=== PATIENT | female | born 2000 | race Caucasian/White ===

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

== ENCOUNTER 2024-05-07 08:00 | Outpatient (CLI) | payer MEDICAID ==
[2024-05-07 17:50] LABS: BILIRUBIN,URINE NEGATIVE (NEGATIVE); GLUCOSE, URINE (UA) NEGATIVE (NEGATIVE); KETONES,URINE (UA) NEGATIVE (NEGATIVE); LEUKOCYTE ESTERASE, URINE NEGATIVE (NEGATIVE); NITRITE,URINE NEGATIVE (NEGATIVE); OCCULT BLOOD,URINE NEGATIVE (NEGATIVE); PH,URINE 6.5 PH (5.0-7.5); PROTEIN,URINE NEGATIVE (NEGATIVE); UROBILINOGEN,URINE 0.2 (NORMAL) E.U./dL (NORMAL)
[2024-05-07 17:52] LABS: CLARITY,URINE CLOUDY (CLEAR)
[2024-05-07 18:18] LABS: AMORPHOUS SEDIMENT,UR Marked /LPF; BACTERIA,URINE None Seen /HPF (None Seen); RBC,URINE None Seen /HPF (0-5); SQUAMOUS EPITHELIAL CELL,UR FEW Squamous (<= Few); WBC,URINE 0-3 /HPF (0-5)
[2024-05-07 20:49] LABS: BACTERIAL VAGINOSIS DNA NEGATIVE (NEGATIVE); CANDIDA GLABRATA DNA NEGATIVE (NEGATIVE); CANDIDA GROUP DNA NEGATIVE (NEGATIVE); CANDIDA KRUSEI DNA NEGATIVE (NEGATIVE); TRICHOMONAS VAGINALIS DNA NEGATIVE (NEGATIVE)
== END 2024-05-07 23:59 | disposition home or self-care (01) ==
LOC: LAB.WC 08:00
PROVIDERS: ATTEND Obstetrics & Gynecology
DX: O99.891 Other specified diseases and conditions complicating pregnancy (principal); N89.8 Other specified noninflammatory disorders of vagina
CPT/HCPCS: 81001; 81514; 87086

== ENCOUNTER 2024-05-21 08:00 | Outpatient (CLI) | payer MEDICAID ==
[2024-05-21 21:09] LABS: CHLAMYDIA TRACHOMATIS DNA NEGATIVE (NEGATIVE); NEISSERIA GONORRHOEAE DNA NEGATIVE (NEGATIVE); TRICHOMONAS VAGINALIS DNA NEGATIVE (NEGATIVE)
== END 2024-05-21 23:59 | disposition home or self-care (01) ==
LOC: LAB.WC 08:00
PROVIDERS: ATTEND Obstetrics & Gynecology
DX: N89.8 Other specified noninflammatory disorders of vagina (principal)
CPT/HCPCS: 87491; 87591; 87661

== ENCOUNTER 2024-05-21 16:59 | Outpatient (CLI) | payer MEDICAID ==
[2024-05-21 17:34] LABS: BASOPHILS # (AUTO) 0.1 10^3/uL (0.0-0.1); BASOPHILS % (AUTO) 0.5 %; EOSINOPHILS # (AUTO) 0.4 10^3/uL (0.0-0.7); HCT - HEMATOCRIT 36.6 % (37.0-47.0); HGB - HEMOGLOBIN 12.9 g/dL (12.0-16.0); LYMPHOCYTES # (AUTO) 2.1 10^3/uL (1.5-3.5); LYMPHOCYTES % (AUTO) 18.8 %; MEAN CORPUSCULAR HEMOGLOBIN 30.9 pg (27.0-31.0); MEAN CORPUSCULAR HGB CONC 35.2 g/dL (32.0-36.0); MEAN CORPUSCULAR VOLUME 87.8 fL (81.0-99.0); MEAN PLATELET VOLUME 9.5 fL (7.9-10.8); MONOCYTES # (AUTO) 0.6 10^3/uL (0.0-1.0); MONOCYTES % (AUTO) 5.3 %; NEUTROPHILS # (AUTO) 7.7 10^3/uL (1.5-6.6); NEUTROPHILS % (AUTO) 70.9 %; PLT - PLATELET COUNT 237 10^3/uL (130-450); RED BLOOD COUNT 4.17 10^6/uL (4.20-5.40); RED CELL DISTRIBUTION WIDTH 12.8 % (12.0-15.0); WHITE BLOOD COUNT 10.9 x10^3/uL (4.8-10.8)
[2024-05-23 03:11] LABS: HBsAG SCREEN Negative (Negative)
[2024-05-23 06:11] LABS: HIV SCREEN 4TH GENERATION Non Reactive (Non Reactive); RPR Non Reactive (Non Reactive)
[2024-05-23 08:11] LABS: VARICELLA-ZOSTER AB IGG 1162 index (Immune >165)
[2024-05-24 03:38] LABS: HCV AB Non Reactive (Non Reactive)
== END 2024-05-21 17:00 | disposition home or self-care (01) ==
LOC: LAB 16:59
PROVIDERS: ATTEND Obstetrics & Gynecology
DX: O99.891 Other specified diseases and conditions complicating pregnancy (principal); N89.8 Other specified noninflammatory disorders of vagina; Z36.89 Encounter for other specified antenatal screening
CPT/HCPCS: 36415; 81001; 85025; 86592; 86762; 86787; 86803; 86850; 86900; 86901; 87086; 87340; 87389; 87491; 87522; 87591; 87661

== ENCOUNTER 2024-11-18 10:43 | Inpatient (IN) ==
[2024-11-18 11:47] LABS: RUPTURE OF MEMBRANES PLUS POSITIVE (NEGATIVE)
[2024-11-18] MEDS ORDERED: SODIUM CHLORIDE FLUSH 0.9% 10 ML SYRINGE IVP PRN ×2 (11:59→12:38)
[2024-11-18] MEDS: ACETAMINOPHEN 325 MG TABLET PO PRN (12:34)
[2024-11-18] MEDS ORDERED: LABETALOL 20 MG/4 ML SYRINGE IVP PRN ×3 (12:38)
[2024-11-18] MEDS ORDERED: NIFEdipine 10 MG CAPSULE PO PRN (12:38)
[2024-11-18] MEDS ORDERED: TRANEXAMIC ACID IN NACL 1,000 MG/100 ML BAG IV PRN (12:38)
[2024-11-18] MEDS ORDERED: METHYLERGONOVINE 0.2 MG/ML VIAL IM PRN (12:38)
[2024-11-18] MEDS ORDERED: OXYTOCIN/SODIUM CHLORIDE 500 ML IV PRN ×2 (12:38→23:15)
[2024-11-18] MEDS ORDERED: TERBUTALINE 1 MG/ML VIAL SUBQ PRN (12:38)
[2024-11-18] MEDS ORDERED: miSOPROStoL 200 MCG TABLET BC PRN (12:38)
[2024-11-18] MEDS ORDERED: lidocaine 1% 20 ML MDV ID PRN (12:38)
[2024-11-18] MEDS ORDERED: fentaNYL 100 MCG/2 ML VIAL IVP PRN ×2 (12:38→22:40)
[2024-11-18] MEDS ORDERED: miSOPROStoL 200 MCG TABLET PR PRN (12:38)
[2024-11-18] MEDS ORDERED: hydrALAZINE INJ 20 MG/ML VIAL IVP PRN (12:38)
[2024-11-18] MEDS ORDERED: OXYTOCIN 10 UNIT/ML VIAL IM PRN (12:38)
[2024-11-18 13:15] LABS: BASOPHILS % (AUTO) 0.3 %; EOSINOPHILS # (AUTO) 0.3 10^3/uL (0.0-0.7); EOSINOPHILS % (AUTO) 1.9 %; HCT - HEMATOCRIT 37.1 % (37.0-47.0); HGB - HEMOGLOBIN 12.3 g/dL (12.0-16.0); LYMPHOCYTES # (AUTO) 1.9 10^3/uL (1.5-3.5); MEAN CORPUSCULAR HEMOGLOBIN 29.7 pg (27.0-31.0); MEAN CORPUSCULAR HGB CONC 33.2 g/dL (32.0-36.0); MEAN CORPUSCULAR VOLUME 89.6 fL (81.0-99.0); MEAN PLATELET VOLUME 10.1 fL (7.9-10.8); MONOCYTES % (AUTO) 6.7 %; NEUTROPHILS # (AUTO) 11.1 10^3/uL (1.5-6.6); PLT - PLATELET COUNT 282 10^3/uL (130-450); RED BLOOD COUNT 4.14 10^6/uL (4.20-5.40); WHITE BLOOD COUNT 14.4 x10^3/uL (4.8-10.8)
--- NOTE | 2024-11-18 13:25 | HISTORY & PHYSICAL EXAMINATION ---
Admit History Smoking Status: Never smoker Other Maternal History Other Maternal History: HPI: Patient is a 24-year-old at 37 weeks 4 days gestation who presents today for leaking fluid. She had a gush of fluid around 0300. Contractions were every 5 minutes, but have spaced out.. She has good movement. No MCGRATH/BV or RUQP. No vaginal bleeding. Denies nausea and vomiting. Denies urinary urgency or dysuria. All other symptoms reviewed and were negative except per HPI. Course 23 yo G1 LMP: 02/29/2024 YU by LMP: 12/05/2024 US: Final YU: FOB Maureen. first for both. unplanned but welcome. 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 BMI 40 at first visit. LD-ASA Marginal cord insertion Pre- Weight: 227 lb BMI: 40.53 Blood type:O+ Antibody: Neg CBC:H/H 12.9/36.6 237 RUB:Immune VZV:Immune HBsAg: Neg HepC: NR RPR/AB-EIA: NR HIV: NR PAP:05/21 NILM GC/CT: Neg HSV: denies Genetic testing:NIPT ordered, does not appear to have been done. Covid: vaccine x1, inf 10/07, declines vac. Flu: 06/18 FAS:ordered 07/15 Placenta: Anterior Cord: 3VC EFW: 550..g 50gm OGCT: 139 3HR GTT: TDAP: 09/10/2024 Breast Pump: 09/10/2024 Antibody screen: 3rd trimester PLT 246 HCT 34.2 HGB 11.4 3rd trimester RPR NR GBS: Delivery plan: Contraception: Mirena HPI Current : Vital Signs Temperature 37.0 C 11/18/24 10:50 Pulse Rate 117 H 11/18/24 10:50 Respiratory Rate 17 11/18/24 10:50 Blood Pressure 138/63 H 11/18/24 11:48 Meds/Allgy Allergies Allergies Allergy/AdvReac Type Severity Reaction Status Date / Time amoxicillin Allergy Hives Verified 11/18/24 10:55 Penicillins Allergy Hives Verified 11/18/24 10:55 PFSH Active Problems All Active Problems (Updated 11/18/24 @ 15:16 by Alonzo Forde MD) Positive GBS test (Acute) Rupture of membranes with clear amniotic fluid (Acute) 37 weeks gestation of (Acute) Marginal insertion of umbilical cord affecting management of mother (Acute) Obesity affecting (Acute) Frequent headaches (Acute) Severe obesity (BMI >= 40) (Acute) Supervision of normal first (Acute) Medical History Medical History (Updated 11/18/24 @ 15:16 by Alonzo Forde MD) History of hypertension was on metoprolol when she conceived. says her bps were quite high before that. took irregularly in early and so stopped. History of depression Anxiety Family History Family History (Updated 07/16/24 @ 08:14 by Arcelia Choi LPN) Mother Cancer High blood pressure Father CAD (coronary artery disease) Social History Social History (Updated 07/17/24 @ 14:00 by Steff Malcolm MD) Smoking Status: Never smoker If you are a former smoker, when did you quit? (Date/Year): former vape Second hand tobacco smoke exposure: No Do you dip or chew tobacco?: No Do you vape?: No Living arrangement: At home Living Condition: With family Living Situation Details: FOB is Maureen. he is a shingles roofer Do you feel safe in your home environment?: Yes Suffered physical, verbal, emotional, or financial abuse?: No ETOH Use: None Substance Use: denies use Are you sexually active?: Yes Control Method: control pill Sexual Practice Notes: was taking ocps when she conceived. 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 Review of Systems Status of ROS: 10 or more systems reviewed and unremarkable except as noted in history and below Physical Abdominal Exam Vital Signs: Temp Pulse Resp BP 37.0 C 117 H 17 138/63 H 11/18/24 10:50 11/18/24 10:50 11/18/24 10:50 11/18/24 11:48 Other Notes Labor Progress Note/Additional Text: General: Alert, oriented, no acute distress Head: Normal cephalic atraumatic Eyes: PERRLA, extraocular motions intact. Respiratory: Normal rate of respiration. No accessory muscle use, normal respiratory effort. Cardiovascular: Regular rate and rhythm Abdomen: Gravid, nontender, nondistended Extremities: Normal range of motion Neuro: Oriented x3. Normal movements Psych: Appropriate mood and affect. Normal judgment and insight SVE: 1/20/-3 FHT: [ ] [place]: [ ] Labs: Positive ROM plus. Plan for Labor Plan For Labor I expect patient to be DC'd or transferred within 96 hours.: Yes Conclusion/Plan Problem List (1) Rupture of membranes with clear amniotic fluid: Plan: -ROM plus positive. Leaking fluid. Had contractions earlier, but have since subsided. -Admit to L&D, admit labs, epidural at patient's request -Oxytocin for augmentation. (2) 37 weeks gestation of : (3) Marginal insertion of umbilical cord affecting management of mother: Plan: Care during labor. Unlikely to affect management. (4) Obesity affecting : Qualifiers: Trimester: third trimester Obesity type affecting : severe obesity due to excess calories Qualified Code(s): O99.213 - Obesity complicating , third trimester; E66.01 - Morbid (severe) obesity due to excess calories (5) Positive GBS test: Plan: -Allergic to penicillin. Resistant to clindamycin. Will start vancomycin. Lab Results 11/18/24 13:00 11/18/24 13:00
[2024-11-18 13:31] LABS: CREATININE,URINE 119.4 mg/dL; PROTEIN/CREATININE RATIO,URINE 0.4 (<=0.2)
[2024-11-18 13:35] LABS: ALBUMIN 3.4 g/dL (3.2-5.5); ALBUMIN/GLOBULIN RATIO 1.1 (1.0-2.2); BILIRUBIN,TOTAL 0.2 mg/dL (0.2-1.0); CALCIUM 8.4 mg/dL (8.5-10.3); CREATININE 0.4 mg/dL (0.6-1.3); POTASSIUM 3.8 mmol/L (3.5-4.5); TOTAL PROTEIN 6.4 g/dL (6.4-8.9)
[2024-11-18] MEDS: LACTATED RINGERS 1,000 ML IV PRN (13:35)
[2024-11-18] MEDS: OXYTOCIN/SODIUM CHLORIDE 500 ML IV SCH (13:35)
--- NOTE | 2024-11-18 14:36 | PHARMACY PROGRESS NOTE ---
Best Possible Medication History Admit Date and Time: 11/18/24 6999 Processed by: Nursing ([employer] Tender, Les spoke with nursing staff) Medications reviewed in ED?: No Medication History completed: Yes Patient Interview: Pt unable to participate Secondary Source(s): Insurance records [facility] Statement: As the person ultimately responsible for medication therapy, providers are able to order a medication from an existing home medication list in [facility] via the "Reconcile Routine" prior to Confirmation of that medication by application support manager. Such practice is discouraged except when the physician, in their clinical judgment, deems that a medical need exists for a medication without regard to previous use.
[2024-11-18] MEDS: VANCOMYCIN INJ 2 GM in SODIUM CHLORIDE 0.9% 500 ML IV SCH (14:45)
[2024-11-18] MEDS: SODIUM CHLORIDE FLUSH 0.9% 10 ML SYRINGE IVP SCH (14:47)
[2024-11-18] MEDS: CALCIUM CARBONATE CHEW 500 MG TABLET PO SCH (16:00)
[2024-11-18] MEDS ORDERED: LIDOCAINE 2%-EPI 1:100000 20 ML MDV ONE (17:15)
[2024-11-18] MEDS ORDERED: ROPIVACAINE 0.2% 200 MG/100 ML BAG EP ONE (17:15)
[2024-11-18] MEDS: ONDANSETRON 4 MG/2 ML VIAL IVP PRN (17:31)
--- NOTE | 2024-11-18 17:46 | ANESTHESIA PROCEDURE NOTE ---
Pre-Anesthesia VS, & Labs Diagnosis Surgical Diagnosis:: labor pain Procedure Procedure: epidural for Vitals Vital Signs: Temp Pulse Resp BP 37.0 C 117 H 17 138/63 H 11/18/24 10:50 11/18/24 10:50 11/18/24 10:50 11/18/24 11:48 NPO Last Fluid Intake: <1hr Last Food Intake: lunch Is Patient ?: Yes Lab Results Current Lab Results: Laboratory Tests 11/18/24 13:00: WBC 14.4 H, RBC 4.14 L, Hgb 12.3, Hct 37.1, MCV 89.6, MCH 29.7, MCHC 33.2, RDW 13.0, Plt Count 282, MPV 10.1, Neut # (Auto) 11.1 H, Lymph # (Auto) 1.9, [place] # (Auto) 1.0, Eos # (Auto) 0.3, Baso # (Auto) 0.0, Absolute Nucleated RBC 0.00, Nucleated RBC % 0.0, Sodium 135, Potassium 3.8, Chloride 105, Carbon Dioxide 22, Anion Gap 8.0, BUN 7, Creatinine 0.4 L, Estimated GFR (MDRD) 200, Glucose 76, Calcium 8.4 L, Total Bilirubin 0.2, AST 13, ALT 11, A lkaline Phosphatase 126 H, Total Protein 6.4, Albumin 3.4, Globulin 3.0, Albumin/Globulin Ratio 1.1, Blood Type O POSITIVE, Antibody Screen NEGATIVE Lab results reviewed: Yes 11/18/24 13:00 11/18/24 13:00 Meds/Allgy Allergies Allergies Allergy/AdvReac Type Severity Reaction Status Date / Time amoxicillin Allergy Hives Verified 11/18/24 10:55 Penicillins Allergy Hives Verified 11/18/24 10:55 PFSH Active Problems All Active Problems (Updated 11/18/24 @ 15:16 by Alonzo Forde MD) Positive GBS test (Acute) Rupture of membranes with clear amniotic fluid (Acute) 37 weeks gestation of (Acute) Marginal insertion of umbilical cord affecting management of mother (Acute) Obesity affecting (Acute) Supervision of normal first (Acute) Frequent headaches (Acute) Severe obesity (BMI >= 40) (Acute) Medical History Medical History (Updated 11/18/24 @ 15:16 by Alonzo Forde MD) History of hypertension was on metoprolol when she conceived. says her bps were quite high before that. took irregularly in early and so stopped. History of depression Anxiety Family History Family History (Updated 07/16/24 @ 08:14 by Arcelia Choi LPN) Mother Cancer High blood pressure Father CAD (coronary artery disease) Social History Social History (Updated 07/17/24 @ 14:00 by Steff Malcolm MD) Smoking Status: Never smoker If you are a former smoker, when did you quit? (Date/Year): former vape Second hand tobacco smoke exposure: No Do you dip or chew tobacco?: No Do you vape?: No Living arrangement: At home Living Condition: With family Living Situation Details: MICHAEL is Maureen. 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 Anesthesia Exam (Expanded) Exam General: Alert, Oriented x3, Cooperative and Mild distress Dental: WNL Mouth Openin Fingerbreadth Neck Mobility: Normal Mallampati classification: III Respiratory: No respiratory distress Cardiovascular: Regular rate (tachy at 110) Neurological: Normal speech Mental/Cognitive Status: Alert/Oriented X3 and Normal for patient Cognitive Status: Within normal limits Plan Problem List (1) Rupture of membranes with clear amniotic fluid: Plan: -ROM plus positive. Leaking fluid. Had contractions earlier, but have since subsided. -Admit to L&D, admit labs, epidural at patient's request -Oxytocin for augmentation. (2) 37 weeks gestation of : (3) Marginal insertion of umbilical cord affecting management of mother: Plan: Care during labor. Unlikely to affect management. (4) Obesity affecting : Qualifiers: Trimester: third trimester Obesity type affecting : severe obesity due to excess calories Qualified Code(s): O99.213 - Obesity complicating , third trimester; E66.01 - Morbid (severe) obesity due to excess calories (5) Positive GBS test: Plan: -Allergic to penicillin. Resistant to clindamycin. Will start vancomycin. Plan Anesthesia Type: Epidural Consent for Procedure(s) Verified and Reviewed: Yes Code Status: Attempt Resuscitation ASA Classification ASA classification: 2-Mild systemic disease Is this case an emergency?: No
[2024-11-18] MEDS ORDERED: NALOXONE 0.4 MG/ML VIAL IVP PRN ×2 (17:47→22:40)
[2024-11-18] MEDS ORDERED: NALBUPHINE 10 MG/ML AMP IVP PRN (17:47)
[2024-11-18] MEDS ORDERED: diphenhydrAMINE INJ 50 MG/ML VIAL IVP PRN (17:47)
[2024-11-18] MEDS ORDERED: METOCLOPRAMIDE 10 MG/2 ML VIAL IVP PRN ×2 (17:47→22:40)
[2024-11-18] MEDS ORDERED: LACTATED RINGERS 500 ML IV ONE (17:47)
[2024-11-18] MEDS ORDERED: ePHEDrine 50 MG/ML VIAL IVP PRN ×2 (17:47→22:40)
[2024-11-18] MEDS ORDERED: ROPIVACAINE 0.2% 200 MG/100 ML BAG EP PRN (17:47)
[2024-11-18] MEDS ORDERED: ONDANSETRON 4 MG/2 ML VIAL IVP PRN ×2 (17:47→22:40)
--- NOTE | 2024-11-18 20:05 | PROVIDER PROGRESS NOTE ---
Labor Progress Note Uterine Monitoring Uterine Monitoring Mode: positive External toco Contraction Frequency (min/apart): Irregular 1-7 minutes Monitoring Monitor Mode: positive External ultrasound Heart Rate Baseline: 150 Heart Rate Variability: positive Moderate (6-25 bmp) Accelerations: positive Present, 15x15 Decelerations: positive Late, Variable and Intermittent (<50% x20 min) Strip Review: positive Category II Vaginal Exam Dilation (in cm): 5 Effacement (%): 100 Station: 0 Labor Progress Note Labor Progress Note/Additional Text: Intemittent late/variable decelerations. More common now with epidural. Will continue to reposition. Oxytocin decreased. Will consider internal monitors if FHT becomes difficult to trace again.
--- NOTE | 2024-11-18 20:56 | MISCELLANEOUS PROVIDER NOTE ---
Miscellaneous Provider Note - Note: Patient with complaints of feeling too numb, legs in particular. Pt lying on L side. Sensory level assessed at T8, able to move B LE. Explained that contractions may become more uncomfortable with changes to dosing. 10cc [id number] reduced to 7cc [id number].
--- NOTE | 2024-11-18 21:00 | PROVIDER PROGRESS NOTE ---
Labor Progress Note Labor Progress Note Labor Progress Note/Additional Text: Continue difficulties tracing fetus and contractions, so FSE and IUPC placed after discussion with patient, support person. Place without difficulty. 6/100/0. Oxytocin at 5 milliunits/min. heart rate tracing 150 bpm baseline, variable decelerations, difficult to trace contractions prior to placement. Now significant variable decelerations noted. Will start amnioinfusion. Increased risk of section.
[2024-11-18] MEDS: LACTATED RINGERS 1,000 ML IY ONE (21:30)
[2024-11-18] MEDS ORDERED: AZITHROMYCIN INJ 500 MG in SODIUM CHLORIDE 0.9% 250 ML IV STA (21:42)
[2024-11-18] MEDS ORDERED: CITRIC ACID/SODIUM CITRATE 15 ML UDC PO ONE (21:43)
[2024-11-18] MEDS ORDERED: SODIUM CHLORIDE 0.9% IV ONE (21:43)
[2024-11-18] MEDS ORDERED: GENTAMICIN IV ONE (21:43)
[2024-11-18] MEDS ORDERED: CLINDAMYCIN 900 MG/50 ML 50 ML IV ONE (21:43)
--- NOTE | 2024-11-18 21:46 | PROVIDER PROGRESS NOTE ---
Labor Progress Note Labor Progress Note Labor Progress Note/Additional Text: Patient with persistent deep variable decelerations that initially improved with amnioinfusion, but subsequently returned. Discussed being remote from delivery with persistent category 2 tracing recommendation to proceed with section. section was recommended. Risks, benefits and alternatives were discussed including but not limited to infection, bleeding that may require blood products or hysterectomy for life saving measures, injury to surrounding organs including but not limited to bowel, bladder, ureters, tubes and ovaries and/or the baby. Should injury occur it could require longer/additional surgery to repair. The patient stated understanding and desired to proceed. All questions were answered posed by patient. Team was called and and will prepare for
[2024-11-18] MEDS ORDERED: OXYTOCIN 10 UNIT/ML VIAL ONE (21:55)
[2024-11-18] MEDS ORDERED: KETOROLAC 30 MG/ML VIAL ONE (22:31)
[2024-11-18] MEDS ORDERED: MORPHINE 2 MG/ML CARPUJECT IVP PRN (22:40)
[2024-11-18] MEDS ORDERED: HYDROmorphone 0.5 MG/0.5 ML SYRINGE IVP PRN (22:40)
[2024-11-18] MEDS ORDERED: ATROPINE ABBOJECT 1 MG/10 ML SYRINGE IVP PRN (22:40)
[2024-11-18] MEDS ORDERED: ACETAMINOPHEN 1,000 MG/100 ML 1,000 MG/100 ML BAG IV ONE (22:43)
[2024-11-18] MEDS ORDERED: LACTATED RINGERS 1,000 ML IV SCH (23:00)
--- NOTE | 2024-11-18 23:14 | OPERATIVE REPORT ---
Operative Report General Admit Date: 11/18/24 Procedure Data: Operation Date: 11/18/24 21:00 Proposed Procedures p Section(Not Applicable) - Alonzo Forde MD Anesthesia Type Epidural Case Staff Anesthesia Provider: Cahn Gan Assisting Provider: Florinda Singh Case Times Procedure Start: 11/18/24 22:23 Time out: 11/18/24 22:22 Pre-op diagnosis: Category 2 tracing remote from delivery Repetitive variable decelerations Spontaneous rupture of membranes 37 weeks gestation Postop diagnosis: Same Status post primary low-transverse section Delivery of live bronson Procedure Note Estimated Blood Loss (ml): 600 Pathology: None Findings: Normal-appearing uterus, tubes, ovaries. Liveborn with Apgars of 8/9. Cord wrapped around head Complications: None Other Other Information/Narrative: section was recommended. Risks, benefits and alternatives were discussed including but not limited to infection, bleeding that may require blood products or hysterectomy for life saving measures, injury to surrounding organs including but not limited to bowel, bladder, ureters, tubes and ovaries and/or the baby. Should injury occur it could require longer/additional surgery to repair. The patient stated understanding and desired to proceed. All questions were answered posed by patient. Verbal consent was obtained. Prior to being taken to the OR, antibiotics were ordered and prior to surgery gentamicin and azithromycin were given, however due to the multiple medications, clindamycin was not given prior to surgery starting. The patient was taken to the operating room where regional anesthesia was found to be adequate. She was then prepared and draped in the usual sterile fashion in the dorsal supine position with a leftward tilt displacing the uterus. Newell was draining to gr avity. SCDs were on bilateral lower extremities. Time out was taken. A pfannenstiel skin incision was then made with the scalpel and carried through to the underlying layer of fascia. The fascia was incised in the midline and the incision extended laterally with the Forrest scissors. The superior aspect of the facial incision was then grasped with the Doron clamps, elevated and the underlying rectus muscles dissected off sharply. Attention was then turned to the inferior aspect of this incision which in a similar fashion was grasped, elevated with the Doron clamps and the rectus muscle dissected off sharply. The rectus muscles were in the midline. The peritoneum identified, grasped with the pick-ups and entered sharply with the Metzenbaum scissors. The peritoneal incision was then extended superiorly and inferiorly with good visualization of the bladder. The bladder blade was inserted. The vesicouterine peritoneum was identified, grasped with the pick-ups, and entered sharply with Metzenbaum scissors. This incision was then extended laterally and the bladder flap created digitally. The bladder blade was reinserted. The lower uterine segment was identified and incised in a transverse fashion with the scalpel. The uterine incision was then extended bluntly laterally. The bladder blade was removed. The fetus was in a cephalic presentation. The infants head delivered atraumatically. The anterior shoulders were delivered followed by the posterior shoulders then the remainder of the body. The infants mouth and nose were bulb suctioned. The umbilical cord was clamped times two and cut. The infant was handed to the pediatric team. The placenta was removed with gentle traction. Oxytocin was added to the IV fluid and was allowed to run freely. The uterus was exteriorized and cleared of all clots and debris. The uterine incision was inspected and found to be without any extensions and was repaired with 0 Vicryl in a running, locked fashion. A second imbricating layer was performed. Upon inspection, the repaired hysterotomy was found to be hemostatic. The uterus was firm and returned to the abdomen. The gutters were cleared of all clots and debris. The muscle layer was examined and found to be hemostatic. The fascia was reapproximated with 0 Vicryl in a running fashion. The subcutaneous tissue was closed with 2-0 Vicryl in 2 layers. The skin was closed in a subcuticular fashion with 4-0 Monocryl. The patient tolerated the procedure well. As no preoperative count was performed, an x-ray was performed at the end of surgery showing no retained objects. The patient was taken to the recovery room in stable condition. I appreciate the assistance of ASH Figueroa during this procedure, and the assistance in retraction, visualization, dissection, and overall assistance during the case were instrumental to the patient's wellbeing. APGARs: 8/9 weight: Pending
[2024-11-18] MEDS ORDERED: ONDANSETRON ODT 4 MG TABLET TL PRN (23:15)
--- NOTE | 2024-11-18 23:38 | XRAY Report ---
PROCEDURE: XR Pelvis 1-2V INDICATIONS: emergent TECHNIQUE: 1 view(s) of the pelvis acquired. COMPARISON: None. FINDINGS: Bones: No fractures or dislocations. No suspicious bony lesions. Soft tissues: Visualized bowel gas pattern is normal. No suspicious soft tissue calcifications. IMPRESSION: No acute pelvic fracture or dislocation. No radiopaque foreign bodies. Reviewed by: Duncan Woo MD on 11/18/2024 11:36 PM PST Approved by: Duncan Woo MD on 11/18/2024 11:36 PM PST Station ID: [id number]
--- NOTE | 2024-11-18 23:42 | ANESTHESIA POST OP EVALUATION ---
Anesthesia Post Eval Post Anesthesia Eval Vitals: Last Vital Signs Temp 38.0 C H 11/18/24 23:25 Pulse 93 11/18/24 23:25 Resp 24 11/18/24 23:25 BP 114/61 11/18/24 23:25 Pulse Ox 96 11/18/24 23:25 CV Function Including HR & BP: Stable Pain Control: Satisfactory Nausea & Vomiting: Negative Mental Status: Baseline Respiratory Status: Airway Patent Hydration Status: Satisfactory Anesthesia Complications: None
[2024-11-19] MEDS ORDERED: CLINDAMYCIN 900 MG/50 ML 900 MG/50 ML BAG IV ONE (00:21)
[2024-11-19] MEDS: CLINDAMYCIN 900 MG/50 ML 900 MG/50 ML BAG IV SCH (00:29)
[2024-11-19 05:47] LABS: BASOPHILS % (AUTO) 0.3 %; EOSINOPHILS # (AUTO) 0.1 10^3/uL (0.0-0.7); EOSINOPHILS % (AUTO) 0.7 %; HCT - HEMATOCRIT 32.2 % (37.0-47.0); HGB - HEMOGLOBIN 10.6 g/dL (12.0-16.0); LYMPHOCYTES # (AUTO) 1.6 10^3/uL (1.5-3.5); LYMPHOCYTES % (AUTO) 11.5 %; MEAN CORPUSCULAR HEMOGLOBIN 29.7 pg (27.0-31.0); MEAN CORPUSCULAR HGB CONC 32.9 g/dL (32.0-36.0); MEAN CORPUSCULAR VOLUME 90.2 fL (81.0-99.0); MEAN PLATELET VOLUME 9.9 fL (7.9-10.8); MONOCYTES # (AUTO) 0.9 10^3/uL (0.0-1.0); MONOCYTES % (AUTO) 6.2 %; NEUTROPHILS # (AUTO) 11.1 10^3/uL (1.5-6.6); NEUTROPHILS % (AUTO) 80.7 %; PLT - PLATELET COUNT 228 10^3/uL (130-450); RED BLOOD COUNT 3.57 10^6/uL (4.20-5.40); RED CELL DISTRIBUTION WIDTH 13.1 % (12.0-15.0); WHITE BLOOD COUNT 13.8 x10^3/uL (4.8-10.8)
[2024-11-19] MEDS: KETOROLAC 30 MG/ML VIAL IVP SCH ×2 (06:12→19:13)
[2024-11-19] MEDS: ACETAMINOPHEN 500 MG TABLET PO SCH (08:11)
[2024-11-19] MEDS: oxyCODONE 5 MG TABLET PO PRN (08:12)
[2024-11-19] MEDS: LACTATED RINGERS 1,000 ML IV SCH (08:12)
[2024-11-19] MEDS: SODIUM CHLORIDE FLUSH 0.9% 10 ML SYRINGE IVP SCH (08:13)
--- NOTE | 2024-11-19 08:45 | PROVIDER PROGRESS NOTE ---
Subjective Subjective Subjective: Subjective Patient reports she is doing well. Lochia appropriate. Denies heavy bleeding. Ambulating. Pelvic and abdominal pain well-controlled. Tolerating oral intake. Diet: Regular. Voiding without difficulty. Passing flatus. Denies BM. Patient is bonding with baby in room Breast feeding going well. Denies feeling lightheaded, dizzy or excessively fatigued. Objective General: Alert, oriented, no apparent distress. Cardiovascular: Regular rate. Regular rhythm. Lungs: No increased work of breathing. Abdomen: Uterus firm. Below umbilicus. No guarding or rebound. Extremities: No pain on palpation. No cords palpated. Distal pulses intact. Incision: Bandage in place. Current Medications Current Medications Current Medications: Current Medications Generic Name Dose Route Start Last Admin Trade Name Freq PRN Reason Stop Dose Admin Acetaminophen 650 mg 11/18/24 11:59 11/18/24 12:34 Acetaminophen 325 Mg Tablet PO 650 mg Q4HR PRN Administration Pain 1 to 4, or Fever Acetaminophen 1,000 mg 11/19/24 00:00 11/19/24 08:11 Acetaminophen 500 Mg Tablet PO 1,000 mg Q6HR RAJ Administration Calcium Carbonate/Glycine 500 mg 11/18/24 15:55 11/18/24 16:00 Calcium Carbonate Chew 500 Mg Tablet PO 500 mg BID RAJ Administration Diphenhydramine HCl 12.5 - 25 mg 11/18/24 17:47 Diphenhydramine Inj 50 Mg/Ml Vial IVP Q6HR PRN ITCHING Docusate Sodium 100 mg 11/19/24 09:00 Docusate Sodium 100 Mg Capsule PO DAILY RAJ Ephedrine Sulfate 5 mg 11/18/24 17:47 Ephedrine 50 Mg/Ml Vial IVP Q5M PRN For SBP<100;give until SBP>100 Fentanyl 50 mcg 11/18/24 12:38 Fentanyl 100 Mcg/2 Ml Vial IVP Q1H PRN Severe Pain (score 7-10) Hydralazine HCl 5 - 10 mg 11/18/24 12:38 Hydralazine Inj 20 Mg/Ml Vial IVP Q20M PRN SBP> or= 160 OR DBP> or= 110 Protocol Lactated Ringer's 500 mls @ 999 mls/hr 11/18/24 12:38 11/18/24 13:35 Lr IV 125 mls/hr PRN PRN Administration PER PHYSICIAN ORDER Oxytocin/Sodium Chloride 500 mls @ 999 mls/hr 11/18/24 12:38 Pitocin/Sodium Chloride IV PRN PRN POST- HEMORR PREVENTION Protocol 999 MILLIUNIT/MIN Tranexamic Acid 1,000 mg in 100 mls @ 600 mls/hr 11/18/24 12:38 Tranexamic 1,000 Mg/100ml-Nacl IV Q30M PRN EBL >1200mL and within 3hr Vancomycin HCl 2 gm/ Sodium 500 mls @ 250 mls/hr 11/18/24 14:30 11/18/24 14:45 Chloride IV 250 mls/hr Q8H RAJ Administration Oxytocin/Sodium Chloride 500 mls @ 2 mls/hr 11/18/24 13:00 11/18/24 21:01 Pitocin/Sodium Chloride IV 0 milliunit/min TITR RAJ 0 mls/hr Titration Protocol 2 MILLIUNIT/MIN Ropivacaine 200 mg in 100 mls @ 0 mls/hr 11/18/24 17:47 Naropin 0.2% EP PRN PRN PAIN Protocol Per Protocol Oxytocin/Sodium Chloride 500 mls @ 999 mls/hr 11/18/24 23:15 Pitocin/Sodium Chloride IV PRN PRN POST- HEMORR PREVENTION Protocol 999 MILLIUNIT/MIN Lactated Ringer's 1,000 mls @ 100 mls/hr 11/18/24 23:45 11/19/24 08:12 Lr IV 100 mls/hr .Q10H RAJ Administration Clindamycin/Sodium Chloride 900 mg in 50 mls @ 100 mls/hr 11/19/24 23:45 11/19/24 01:29 Cleocin 900 Mg/50 Ml IV Infused Q6H RAJ Infusion Ibuprofen 600 mg 11/20/24 00:00 Ibuprofen 600 Mg Tablet PO Q6HR RAJ Ketorolac Tromethamine 30 mg 11/19/24 00:00 11/19/24 06:12 Ketorolac 30 Mg/Ml Vial IVP 11/19/24 12:01 30 mg Q6HR RAJ Administration Labetalol HCl 20 - 80 mg 11/18/24 12:38 Labetalol 20 Mg/4 Ml Syringe IVP Q10M PRN SBP> or= 160 OR DBP> or= 110 Protocol Labetalol HCl 20 mg 11/18/24 12:38 Labetalol 20 Mg/4 Ml Syringe IVP .ONCE PRN SBP> or= 160 OR DBP> or= 110 Protocol Labetalol HCl 20 - 40 mg 11/18/24 12:38 Labetalol 20 Mg/4 Ml Syringe IVP Q10M PRN SBP> or= 160 OR DBP> or= 110 Protocol Lidocaine HCl 20 ml 11/18/24 12:38 Lidocaine 1% 20 Ml Mdv ID 11/21/24 12:38 .ONCE PRN PERINEAL REPAIR Methylergonovine Maleate 0.2 mg 11/18/24 12:38 Methylergonovine 0.2 Mg/Ml Vial IM .ONCE PRN Hemorrhage Metoclopramide HCl 10 mg 11/18/24 17:47 Metoclopramide 10 Mg/2 Ml Vial IVP Q6HR PRN Nausea / Vomiting Misoprostol 600 mcg 11/18/24 12:38 Misoprostol 200 Mcg Tablet BC .ONCE PRN Hemorrhage Misoprostol 800 mcg 11/18/24 12:38 Misoprostol 200 Mcg Tablet CO .ONCE PRN Hemorrhage Nalbuphine HCl 2.5 - 5 mg 11/18/24 17:47 Nalbuphine 10 Mg/Ml Amp IVP Q4H PRN ITCHING Naloxone HCl 0.1 mg 11/18/24 17:47 Naloxone 0.4 Mg/Ml Vial IVP Q2M PRN RR<8 Nifedipine 10 - 20 mg 11/18/24 12:38 Nifedipine 10 Mg Capsule PO Q20M PRN SBP> or= 160 OR DBP> or= 110 Protocol Ondansetron HCl 4 mg 11/18/24 17:19 11/18/24 17:31 Ondansetron 4 Mg/2 Ml Vial IVP 4 mg Q6HR PRN Administration Nausea / Vomiting Ondansetron HCl 4 mg 11/18/24 17:47 Ondansetron 4 Mg/2 Ml Vial IVP Q6HR PRN Nausea / Vomiting Ondansetron HCl 4 mg 11/18/24 23:15 Ondansetron Odt 4 Mg Tablet TL Q4HR PRN Nausea / Vomiting Oxycodone HCl 5 mg 11/18/24 23:15 11/19/24 08:12 Oxycodone 5 Mg Tablet PO 5 mg Q4HR PRN Administration Moderate Pain (Level 4-6) Oxytocin 10 unit 11/18/24 12:38 Oxytocin 10 Unit/Ml Vial IM .ONCE PRN Step One if no IV access. Simethicone 80 mg 11/18/24 23:15 Simethicone Chew 80 Mg Tablet PO TID PRN Gas Sodium Chloride 10 ml 11/18/24 11:59 Sodium Chloride Flush 0.9% 10 Ml Syringe IVP PRN PRN NEEDED PER PROVIDER ORDERS Sodium Chloride 10 ml 11/18/24 17:00 11/19/24 08:13 Sodium Chloride Flush 0.9% 10 Ml Syringe IVP 10 ml 0100,0900,1700 RAJ Administration Sodium Chloride 10 ml 11/18/24 12:38 Sodium Chloride Flush 0.9% 10 Ml Syringe IVP PRN PRN NEEDED PER PROVIDER ORDERS Sodium Chloride 10 ml 11/18/24 13:00 11/18/24 14:47 Sodium Chloride Flush 0.9% 10 Ml Syringe IVP 10 ml Q8H RAJ Administration Terbutaline Sulfate 0.25 mg 11/18/24 12:38 Terbutaline 1 Mg/Ml Vial SUBQ .ONCE PRN Tachystole Objective Vital Signs/Intake & Output Vital Signs: Vital Signs x48h Temp Pulse Resp BP Pulse Ox 11/19/24 08:00 36.9 C 91 18 121/77 11/19/24 03:30 38.6 C H 93 16 130/80 97 11/19/24 02:30 37 C 92 18 135/87 H 96 11/19/24 01:30 37.2 C 103 H 18 118/80 96 11/19/24 00:50 94 18 103/61 95 Intake & Output: Intake & Output 11/16/24 11/17/24 11/18/24 11/19/24 23:59 23:59 23:59 23:59 Intake Total 2049 / 0 50 / 50 Output Total 900 / 900 1650 / 1650 Balance 1150 / 1150 -1600 / -1600 Weight (kg) 280 lb Lab Results 11/19/24 05:40 11/18/24 13:00 Other Labs: Lab Results x24hrs 11/19/24 11/18/24 11/18/24 Range/Units 05:40 13:00 11:30 WBC 13.8 H 14.4 H (4.8-10.8) x10^3/uL RBC 3.57 L 4.14 L (4.20-5.40) 10^6/uL Hgb 10.6 L 12.3 (12.0-16.0) g/dL Hct 32.2 L 37.1 (37.0-47.0) % MCV 90.2 89.6 (81.0-99.0) fL MCH 29.7 29.7 (27.0-31.0) pg MCHC 32.9 33.2 (32.0-36.0) g/dL RDW 13.1 13.0 (12.0-15.0) % Plt Count 228 282 (130-450) 10^3/uL MPV 9.9 10.1 (7.9-10.8) fL Neut # (Auto) 11.1 H 11.1 H (1.5-6.6) 10^3/uL Lymph # (Auto) 1.6 1.9 (1.5-3.5) 10^3/uL Terrell # (Auto) 0.9 1.0 (0.0-1.0) 10^3/uL Eos # (Auto) 0.1 0.3 (0.0-0.7) 10^3/uL Baso # (Auto) 0.0 0.0 (0.0-0.1) 10^3/uL Absolute Nucleated RBC 0.00 0.00 x10^3/uL Nucleated RBC % 0.0 0.0 /100WBC Sodium 135 (135-145) mmol/L Potassium 3.8 (3.5-4.5) mmol/L Chloride 105 (101-111) mmol/L Carbon Dioxide 22 (21-32) mmol/L Anion Gap 8.0 (6-13) BUN 7 (6-20) mg/dL Creatinine 0.4 L (0.6-1.3) mg/dL Estimated GFR (MDRD) 200 (>89) Glucose 76 (74-104) mg/dL Calcium 8.4 L (8.5-10.3) mg/dL Total Bilirubin 0.2 (0.2-1.0) mg/dL AST 13 (10-42) IU/L ALT 11 (10-60) IU/L Alkaline Phosphatase 126 H (42-121) IU/L Total Protein 6.4 (6.4-8.9) g/dL Albumin 3.4 (3.2-5.5) g/dL Globulin 3.0 (2.1-4.2) g/dL Albumin/Globulin Ratio 1.1 (1.0-2.2) Urine Creatinine 119.4 mg/dL Ur Total Protein Timed 45 mg/dL Protein/Creatinin Ratio 0.4 H (<=0.2) Membranes Rupture (NEGATIVE) Blood Type O POSITIVE Antibody Screen NEGATIVE 11/18/24 Range/Units 11:20 WBC (4.8-10.8) x10^3/uL RBC (4.20-5.40) 10^6/uL Hgb (12.0-16.0) g/dL Hct (37.0-47.0) % MCV (81.0-99.0) fL MCH (27.0-31.0) pg MCHC (32.0-36.0) g/dL RDW (12.0-15.0) % Plt Count (130-450) 10^3/uL MPV (7.9-10.8) fL Neut # (Auto) (1.5-6.6) 10^3/uL Lymph # (Auto) (1.5-3.5) 10^3/uL Terrell # (Auto) (0.0-1.0) 10^3/uL Eos # (Auto) (0.0-0.7) 10^3/uL Baso # (Auto) (0.0-0.1) 10^3/uL Absolute Nucleated RBC x10^3/uL Nucleated RBC % /100WBC Sodium (135-145) mmol/L Potassium (3.5-4.5) mmol/L Chloride (101-111) mmol/L Carbon Dioxide (21-32) mmol/L Anion Gap (6-13) BUN (6-20) mg/dL Creatinine (0.6-1.3) mg/dL Estimated GFR (MDRD) (>89) Glucose (74-104) mg/dL Calcium (8.5-10.3) mg/dL Total Bilirubin (0.2-1.0) mg/dL AST (10-42) IU/L ALT (10-60) IU/L Alkaline Phosphatase (42-121) IU/L Total Protein (6.4-8.9) g/dL Albumin (3.2-5.5) g/dL Globulin (2.1-4.2) g/dL Albumin/Globulin Ratio (1.0-2.2) Urine Creatinine mg/dL Ur Total Protein Timed mg/dL Protein/Creatinin Ratio (<=0.2) Membranes Rupture POSITIVE A (NEGATIVE) Blood Type Antibody Screen Assessment/Plan Problem List (1) care and examination of lactating mother: Impression: Routine postoperative care. Routine care. Increased risk for infection given labor then surgery. No signs of infection at this time. (2) Delivery outcome of bronson : (3) Delivery by section:
[2024-11-19] MEDS ORDERED: DOCUSATE SODIUM 100 MG CAPSULE PO SCH (09:00)
[2024-11-19] MEDS: DOCUSATE SODIUM 100 MG CAPSULE PO SCH (12:29)
[2024-11-20] MEDS: IBUPROFEN 600 MG TABLET PO SCH (01:03)
[2024-11-20] MEDS: SIMETHICONE CHEW 80 MG TABLET PO PRN (01:09)
--- NOTE | 2024-11-20 10:56 | PROVIDER PROGRESS NOTE ---
Subjective Prog Note Date Prog Note Date: 11/20/24 Prog Note Time: 10:53 Subjective Subjective: Joyce reports overall feeling well. Baby is at bedside, she is breast feeding. Rpeorts pain overall well controlled. She is tolerating regular diet without N/V. She is ambulating around room and voiding spontaneously. Reports bleeding is minimal. She is passing flatus. Denies fevers/chills. Current Medications Current Medications Current Medications: Current Medications Generic Name Dose Route Start Last Admin Trade Name Freq PRN Reason Stop Dose Admin Acetaminophen 1,000 mg 11/19/24 00:00 11/20/24 04:39 Acetaminophen 500 Mg Tablet PO 1,000 mg Q6HR RAJ Administration Calcium Carbonate/Glycine 500 mg 11/18/24 15:55 11/20/24 01:09 Calcium Carbonate Chew 500 Mg Tablet PO 500 mg BID RAJ Administration Diphenhydramine HCl 12.5 - 25 mg 11/18/24 17:47 Diphenhydramine Inj 50 Mg/Ml Vial IVP Q6HR PRN ITCHING Docusate Sodium 100 mg 11/19/24 09:00 11/20/24 07:21 Docusate Sodium 100 Mg Capsule PO 100 mg DAILY RAJ Administration Ephedrine Sulfate 5 mg 11/18/24 17:47 Ephedrine 50 Mg/Ml Vial IVP Q5M PRN For SBP<100;give until SBP>100 Fentanyl 50 mcg 11/18/24 12:38 Fentanyl 100 Mcg/2 Ml Vial IVP Q1H PRN Severe Pain (score 7-10) Hydralazine HCl 5 - 10 mg 11/18/24 12:38 Hydralazine Inj 20 Mg/Ml Vial IVP Q20M PRN SBP> or= 160 OR DBP> or= 110 Protocol Lactated Ringer's 500 mls @ 999 mls/hr 11/18/24 12:38 11/18/24 13:35 Lr IV 125 mls/hr PRN PRN Administration PER PHYSICIAN ORDER Ropivacaine 200 mg in 100 mls @ 0 mls/hr 11/18/24 17:47 Naropin 0.2% EP PRN PRN PAIN Protocol Per Protocol Oxytocin/Sodium Chloride 500 mls @ 999 mls/hr 11/18/24 23:15 Pitocin/Sodium Chloride IV PRN PRN POST- HEMORR PREVENTION Protocol 999 MILLIUNIT/MIN Lactated Ringer's 1,000 mls @ 100 mls/hr 11/18/24 23:45 11/19/24 17:30 Lr IV 0 mls/hr .Q10H RAJ Infusion Ibuprofen 600 mg 11/20/24 00:00 11/20/24 07:20 Ibuprofen 600 Mg Tablet PO 600 mg Q6HR RAJ Administration Ketorolac Tromethamine 30 mg 11/19/24 19:00 11/19/24 19:13 Ketorolac 30 Mg/Ml Vial IVP 11/22/24 19:01 30 mg ONCE RAJ Administration Labetalol HCl 20 - 80 mg 11/18/24 12:38 Labetalol 20 Mg/4 Ml Syringe IVP Q10M PRN SBP> or= 160 OR DBP> or= 110 Protocol Labetalol HCl 20 mg 11/18/24 12:38 Labetalol 20 Mg/4 Ml Syringe IVP .ONCE PRN SBP> or= 160 OR DBP> or= 110 Protocol Labetalol HCl 20 - 40 mg 11/18/24 12:38 Labetalol 20 Mg/4 Ml Syringe IVP Q10M PRN SBP> or= 160 OR DBP> or= 110 Protocol Lidocaine HCl 20 ml 11/18/24 12:38 Lidocaine 1% 20 Ml Mdv ID 11/21/24 12:38 .ONCE PRN PERINEAL REPAIR Methylergonovine Maleate 0.2 mg 11/18/24 12:38 Methylergonovine 0.2 Mg/Ml Vial IM .ONCE PRN Hemorrhage Metoclopramide HCl 10 mg 11/18/24 17:47 Metoclopramide 10 Mg/2 Ml Vial IVP Q6HR PRN Nausea / Vomiting Misoprostol 600 mcg 11/18/24 12:38 Misoprostol 200 Mcg Tablet BC .ONCE PRN Hemorrhage Misoprostol 800 mcg 11/18/24 12:38 Misoprostol 200 Mcg Tablet CA .ONCE PRN Hemorrhage Nalbuphine HCl 2.5 - 5 mg 11/18/24 17:47 Nalbuphine 10 Mg/Ml Amp IVP Q4H PRN ITCHING Naloxone HCl 0.1 mg 11/18/24 17:47 Naloxone 0.4 Mg/Ml Vial IVP Q2M PRN RR<8 Nifedipine 10 - 20 mg 11/18/24 12:38 Nifedipine 10 Mg Capsule PO Q20M PRN SBP> or= 160 OR DBP> or= 110 Protocol Ondansetron HCl 4 mg 11/18/24 17:19 11/18/24 17:31 Ondansetron 4 Mg/2 Ml Vial IVP 4 mg Q6HR PRN Administration Nausea / Vomiting Ondansetron HCl 4 mg 11/18/24 17:47 Ondansetron 4 Mg/2 Ml Vial IVP Q6HR PRN Nausea / Vomiting Ondansetron HCl 4 mg 11/18/24 23:15 Ondansetron Odt 4 Mg Tablet TL Q4HR PRN Nausea / Vomiting Oxycodone HCl 5 mg 11/18/24 23:15 11/20/24 01:09 Oxycodone 5 Mg Tablet PO 5 mg Q4HR PRN Administration Moderate Pain (Level 4-6) Oxytocin 10 unit 11/18/24 12:38 Oxytocin 10 Unit/Ml Vial IM .ONCE PRN Step One if no IV access. Simethicone 80 mg 11/18/24 23:15 11/20/24 01:09 Simethicone Chew 80 Mg Tablet PO 80 mg TID PRN Administration Gas Sodium Chloride 10 ml 11/18/24 12:38 Sodium Chloride Flush 0.9% 10 Ml Syringe IVP PRN PRN NEEDED PER PROVIDER ORDERS Sodium Chloride 10 ml 11/18/24 13:00 11/18/24 14:47 Sodium Chloride Flush 0.9% 10 Ml Syringe IVP 10 ml Q8H RAJ Administration Terbutaline Sulfate 0.25 mg 11/18/24 12:38 Terbutaline 1 Mg/Ml Vial SUBQ .ONCE PRN Tachystole Objective Vital Signs/Intake & Output Vital Signs: Vital Signs x48h Temp Pulse Resp BP Pulse Ox 11/20/24 07:24 97.9 F 96 17 116/74 97 11/20/24 04:30 98.2 F 95 18 123/76 96 Intake & Output: Intake & Output 11/17/24 11/18/24 11/19/24 11/20/24 23:59 23:59 23:59 23:59 Intake Total 2049 / 2049 2080 / 2080 150 / 150 Output Total 900 / 900 4380 / 4380 Balance 1150 / 1150 -2300 / -2300 150 / 150 Weight (kg) 280 lb Objective Comments/Other: Gen: NAD Chest: non labored respirations Abd: appropriately TTP, no fundal tenderness, non-distended, incision is intact with steri strips in place Ext: trace LE edema, no evidence of DVT Lab Results 11/19/24 05:40 11/18/24 13:00 Assessment/Plan Problem List (1) care and examination of lactating mother: Impression: - Continue routine postoperative care - Discussed fevers after delivery, concerning for chorioamnionitis. Currently afebrile and with normal VS, last fever was after delivery on 11/19 at 0330AM. Recommended that we monitor her in-house for at least 48hrs after last fever. Anticipate discharge home tomorrow. She is agreeable to stay until tomorrow. (2) Delivery outcome of bronson infant: (3) Delivery by section: (4) Chorioamnionitis:
--- NOTE | 2024-11-21 07:31 | Discharge Summary ---
Discharge Summary Admit Date: 11/18/24 Discharge Date: 11/21/24 HPI History of Present Illness: Admission Diagnosis: - SIUP at 37w4d - obesity in - marginal cord insertion - GBS + Discharge Diagnosis: - Same, delivered - Preeclampsia without severe features - Chorioamnionitis Procedures: primary LTCS for intolerance of labor Hospital Course: Claudette is a 24 yo who presented at 37w4d with SROM. 10/05/3 on presentation. Her labor was augmented with pitocin. She progressed to 6cm, but ultimately had a primary LTCS for intolerance with repetitive deep variable decelerations despite amnioinfusion. She did have a fever immediately after delivery, concerning for chorioamnionitis. Antibiotics were not continued after delivery. She was monitored for > 48 hrs after last fever. In addition, she had several mildly elevated blood pressures, consistent with preeclampsia without severe features, asymptomatic. Her course was otherwise uncomplicated. Condition on Discharge: SUBJECTIVE: day 3 She feels well and is ready to go home. Pain is well controlled with current medications. The baby is doing well. Baby is feeding via breast feeding. She is ambulating well, tolerating normal diet, urinating without difficulty. Flatus has been passed. Lochia is reported as light. She had an episode of elevated heart rate last evening, now normal. Reports at that time she had been ambulating quite a bit and was also having increased pain. Denies MCGRATH, vision changes, CP, SOB. OBJECTIVE: Vital signs reviewed GENERAL: NAD RESP: lungs CTAB, non labored respirations CV: RRR ABD: soft, non-distended appropriately TTP, fundus firm INCISION: Incision is clean and dry, steri strips in place EXT: trace lower extremity edema; No evidence of DVT LAB & IMAGING STUDIES: See below PLAN: Plan for discharge home with follow up in clinic on Saturday or Saturday for incision and blood pressure check. Reviewed home care instructions and medications. Patient counseled regarding signs and symptoms of infection, excessive bleeding, vaginal rest and activity restrictions. Preeclampsia precautions were also discussed in detail. Contraceptive plans to be formalized at visit. Discussed that additional support is available in our clinic if needed. ALLERGIES Allergies Allergy/AdvReac Type Severity Reaction Status Date / Time amoxicillin Allergy Hives Verified 11/18/24 10:55 Penicillins Allergy Hives Verified 11/18/24 10:55 MEDICATIONS Ambulatory Orders Medication Instructions Recorded Confirmed acetaminophen 500 mg tablet 1,000 mg (2 x 500 mg) PO Q6H PRN 11/20/24 (Tylenol Extra Strength) pain #60 tabs ibuprofen 600 mg tablet 600 mg PO Q6H PRN pain #60 tabs 11/20/24 oxycodone 5 mg tablet 5 mg PO Q6H severe postoperative 11/20/24 pain #20 tabs sennosides 8.6 mg-docusate sodium 1 tab-cap PO BID PRN constipation 11/20/24 50 mg capsule (Senna Plus) #30 caps LABS 11/19/24 05:40 11/18/24 13:00 Discharge Plan Discharge Patient Disposition: Home, Self Care Prescriptions: Continued acetaminophen [Tylenol Extra Strength] 500 mg tablet 1,000 mg PO Q6H PRN (Reason: pain) Qty: 60 0RF ibuprofen 600 mg tablet 600 mg PO Q6H PRN (Reason: pain) Qty: 60 0RF oxycodone 5 mg tablet 5 mg PO Q6H Qty: 20 0RF Senna Plus 8.6-50 mg capsule 1 tab-cap PO BID PRN (Reason: constipation) Qty: 30 0RF Print Language: Danish Patient Instructions: Childbirth Breast Care, , Depression , Change Expect Parents Follow-up Care: Chris Leos MD [Primary Care Provider] -
[2024-11-21 07:59] VITALS: BP 144/83; TEMP 98.2; O2SAT 96
--- NOTE | 2024-11-21 12:35 | Labor Flowsheet ---
Labor Flowsheet Datetime Report Generated by CPN: 11/21/2024 12:34 Datetime: 11/18/2024 22:10 FHR Baseline Rate : 150 Datetime: 11/18/2024 22:00 MONTEVIDEO UNITS (Computed) Contractions in Ten Minutes: 4 IUPC Average Intensity: 40 IUPC Average Resting Tone: 10 [place] Units (mmHg): 120 Variability: Moderate 6-25 bpm Accelerations: None Decelerations: Variable Patient Care Comments: to OR Datetime: 11/18/2024 21:47 VITAL SIGNS NBP Sys/Latanya/Mean (mmHg): 184 : 65 : 87 Pulse: 134 LaborFlag: Labor Datetime: 11/18/2024 21:44 SpO2 (%): 97 Datetime: 11/18/2024 21:40 UTERINE ACTIVITY Monitor Mode: Internal ASSESSMENT A Monitor Mode: Internal Scalp Electrode Datetime: 11/18/2024 21:38 Communication Comments: dr baljinder discussinf cs with family Datetime: 11/18/2024 21:35 VAGINAL EXAM Dilatation (cm): 6.5 Exam by: DR BALJINDER Datetime: 11/18/2024 21:31 Patient Position/Activity: Supine Datetime: 11/18/2024 21:30 Frequency (min): 2-3 Duration (sec): 60-80 Pattern: Normal: <= 5 Contractions in 10 Minutes Resting Tone IUP (mmHg): 20 Intensity IUP (mmHg): 90 Datetime: 11/18/2024 21:10 PATIENT CARE IV/Blood Work: IV Bolus Started Datetime: 11/18/2024 21:01 MEDICATIONS Pitocin (milliunits): Discontinued Datetime: 11/18/2024 20:52 Monitor Interventions for UA: IUPC Inserted Resting Tone (Palpate): Relaxed Monitor Interventions for FHR: FSE Applied Actions for Decelerations: Side to Side Datetime: 11/18/2024 20:45 Quality: Moderate FHR Baseline Changes: No Baseline Change Datetime: 11/18/2024 20:41 COMMUNICATION Communication: RN at Bedside; RN Reviewed Strip; Provider at Bedside Datetime: 11/18/2024 20:18 Anesthesia Level Check: T10- Umbilicus Anesthesia Comments: Anesthesia here epidural turned down for more leg control Datetime: 11/18/2024 20:13 Category: Category II Datetime: 11/18/2024 20:10 Provider Notified (Name): Gan, C. DATA PROCESSING MANAGER Datetime: 11/18/2024 19:57 Effacement (%): 100 Station: -1 Vaginal Bleeding: None Cervix, Consistency: Soft Cervix, Position: Midposition Datetime: 11/18/2024 19:46 Amniotic Fluid Amount: None Datetime: 11/18/2024 19:37 Strip Reviewed by: Lamont Tapia Notification Reason: Status Datetime: 11/18/2024 19:21 Pitocin Checklist: At Least 1 Acceleration of 15 bpm x 15 Seconds in 30 Minutes or Adequate Variabi lity; No More than 1 Late Deceleration Occurred in Past 30 Minutes; No More than 2 Variable Decelerat ions > 60 Seconds in Duration and decreasing >60 bpm in 30 minutes; No More than 5 Uterine Contractio ns in 10 Minutes for any 20 Minute Interval; Uterus Palpates Soft between Contractions Datetime: 11/18/2024 18:03 Temperature (C): 36.6 Datetime: 11/18/2024 17:57 I/O Interventions: Newell Cath Inserted Datetime: 11/18/2024 17:39 Pain Presence: None/Denies Datetime: 11/18/2024 17:27 Comments: maternal heart recorded ANESTHESIA Epidural Procedure: Test Dose Datetime: 11/18/2024 16:03 PAIN Pain Scale: 7 Pain Type: Cramping Pain Location: Abdomen; Back Datetime: 11/18/2024 15:24 Pain Goal: 8 Datetime: 11/18/2024 14:45 Medication Comments: Vancomycin 2g initated Datetime: 11/18/2024 14:15 Contraction Comments: unable to determine d/t pt position. TOCO adjusted. Abd palpates soft Datetime: 11/18/2024 13:41 Stage of : Labor Respirations: 17 Temperature Route: Oral Vital Sign Comments: pt state she is feeling anxious
== END 2024-11-21 12:00 | disposition home or self-care (01) | DRG 786 ==
LOC: WFO 10:43 → FBP 10:47
PROVIDERS: ADMIT Obstetrics & Gynecology; ATTEND Obstetrics & Gynecology
DX: O76 Abnormality in fetal heart rate and rhythm complicating labor and delivery; O41.1230 Chorioamnionitis, third trimester, not applicable or unspecified; Z87.891 Personal history of nicotine dependence; O99.824 Streptococcus B carrier state complicating childbirth; O99.214 Obesity complicating childbirth; Z37.0 Single live birth; Z3A.37 37 weeks gestation of pregnancy; O14.04 Mild to moderate pre-eclampsia, complicating childbirth; O69.89X0 Labor and delivery complicated by other cord complications, not applicable or unspecified; E66.01 Morbid (severe) obesity due to excess calories